=== PATIENT | female | born 1960 | race Caucasian/White ===

== ENCOUNTER 2016-12-12 15:35 | Emergency (ER) | payer OTHER ==
[~2016-12-12] VITALS: Ht 152.4 cm; Wt 48.5 kg
[~2016-12-12 15:35] MED LIST: CALCTAB5 PO; ERGO1CAP35 PO; LSN25 PO; NRN100 PO; SERT50TA PO
[2016-12-12 15:37] VITALS: TEMP 37.1; Ht 152.4 cm; Wt 48.5 kg
[2016-12-12] MEDS ORDERED: CALCTAB5 PO (16:04)
[2016-12-12] MEDS ORDERED: IBUP-1050 PO (16:04)
[2016-12-12] MEDS ORDERED: NAPR1TAB9 PO (16:04)
[2016-12-12] MEDS ORDERED: ACET-1256 PO (16:04)
[2016-12-12] MEDS ORDERED: SERT-234 PO (16:04)
[2016-12-12] MEDS ORDERED: GABA300C19 PO (16:04)
[2016-12-12] MEDS ORDERED: HYDROCODONE/ACETAMOPHEN 5/325MG TAB PO ONE (16:30)
--- NOTE | 2016-12-12 16:47 | DIAGNOSTIC IMAGING REPORT ---
RIGHT FOOT MIN 3 VIEWS ROUTINE CLINICAL HISTORY: Right foot pain. Surgery one year ago. COMPARISON: Right foot radiographs August 29, 2015. FINDINGS: The tarsometatarsal joints are intact. There is no acute fracture. There are postoperative findings within the right first metatarsophalangeal joint consistent with an arthroplasty. There is a screw within the right first metatarsal head. There is lucency surrounding the hardware within the proximal phalanx. There are also subtle erosions within the distal aspect of the right first metatarsal. These findings have developed since prior exam. There is no acute fracture. IMPRESSION: 1. No acute fracture or dislocation of the right foot. 2. Status post right first metatarsophalangeal joint arthroplasty. Interval development of mild lucency surrounding the hardware within the proximal phalanx as well as erosions within the distal aspect of the first metatarsal. These findings raise the possibility of loosening of the hardware. Electronically signed by: Nacho Angulo M.D. 12/12/2016 4:46 PM Dictated Date/Time: 12/12/2016 4:41 PM
[2016-12-12 17:12] VITALS: BP 162/89; PULSE 58; O2SAT 100
[2016-12-12] MEDS ORDERED: HYDR-5688 PO (17:31)
--- NOTE | 2016-12-14 06:50 | EMERGENCY ROOM VISIT NOTE ---
ED Visit Note First contact with patient: 15:56 Chief Complaint: Right foot pain. History of Present Illness: Ms. Raphael is a 56-year-old white female who ambulates into the ED complaining of right foot pain. Historically patient reports approximately one year ago she had surgery on her great toe for what she describes as excessive palm formation in the [place] area. She reports since her surgery she continues to have pain in the right great toe area and over the last month the pain has increased in severity. Initially she did follow-up with orthopedic surgeon but reports subsequently her orthopedic surgeon has retired and her care was not transferred to another specialist. Patient reports over the right first MTP joint she has deep achy sensation at rest that becomes sharp and shooting up her leg when she is weightbearing and ambulating. She rates her discomfort 8/10. She describes radiation pattern that extends from her scar up the anterior portion of the lower leg then deviates laterally at the level of the knee and all the way into her hip. She has mild relief when she is not weightbearing or ambulating with return to her normal deep achy sensation. She reports she has been placed on gabapentin which initially helped her discomfort but since it has escalated she has not received any relief from the medication. She denies any associated symptoms including fevers, chills, sweats, skin eruptions, skin color changes, new trauma to the area, abdominal pain, nausea, vomiting, decreased appetite, lumbar back pain, right lower extremity weakness/numbness/tingling. Review of Systems: As noted above in history of present illness. 8 body systems were reviewed and found to be negative as noted above. Past Medical History: As previously noted, hypertension, unspecified skin kidney disease, asthma, chronic back pain, status post hysterectomy Current Medications: Lisinopril, Zoloft, Carafate, Neurontin, Tylenol, Aleve, ibuprofen. Allergies to Medications: Aspirin, penicillin, tramadol, Flexeril. Social History: Patient is not employed; she feels safe in her home environment ; she mitts to tobacco and alcohol use. Physical Examination: Vital Signs: Date Time Temp Pulse Resp B/P (MAP) Pulse Ox O2 Delivery O2 Flow Rate FiO2 12/12/16 17:12 58 18 162/89 100 Room Air 12/12/16 15:37 37.1 74 20 141/73 98 Room Air GENERAL: 56-year-old female in moderate distress due to pain, nontoxic-appearing , afebrile and hemodynamically stable. NEUROLOGICAL: Awake, alert and oriented to person, place and time. Answering questions appropriately and following commands. Limbed gait. Good hand eye coordination. No focal motor or sensory deficits. SKIN: Warm, dry and pink. No soft tissue eruptions or trauma noted. Patient's surgical scar on her right foot is clean dry and intact without signs of infection. RIGHT LOWER EXTREMITY: No gross bony deformity. Moderate tenderness starting over the first MTP joint extending superiorly over the anterior foot and ankle and the anterior mid tibial area. I do not appreciate any bony deformity or crepitus. There is no erythema or edema. The area is not warm to palpation. She has difficulty flexing and extending her great toe at the MTP joint. She does have full range of motion at the ankle, knee and hip. She was able to distinguish light sensations through all dermatomes. Throughout the foot capillary refill was brisk. No dependent edema. No calf tenderness or cords. ED Course: Patient is assessed as noted above. Patient's medication list was reviewed. Patient was given one [place] 5/325 mg tablet by mouth for pain. Right Foot X-Rays: Were read by myself and the radiologist showing no acute fractures or dislocations. Radiologist notes that status post right first MTP joint arthroplasty with interval development of mild lucency surrounding the hardware within the proximal phalanx and erosions within the distal aspect of the first metatarsal raising the possibility of loosening hardware. Patient was placed in a postop shoe; she was offered crutches and reported she had a pair at home. Patient was educated about today's findings and instructed on her treatment plan ; she verbalizes understanding and agreement with this plan. Clinical Impression: Right foot pain. Loosening surgical hardware. Decision-Making: Initially my differential diagnosis I considered fracture, dislocation, gout, arthritis, hardware malfunction and other causes. Disposition: Patient discharged home in stable condition; prior to departure she was reassessed and subjectively reported she was feeling better and rated her discomfort 3/10. Plan: Comfort measures including rest, postop shoe and crutch use and a sliding pain scale of ibuprofen, acetaminophen and [place] were discussed with the patient. Patient was given appropriate precautions for narcotic use and her name was checked on the state database and no red flags were noted. Patient was encouraged to call her PCP for referral to orthopedics in her area for definitive care and treatment. Patient was encouraged return to the ED for worsening pain, redness/swelling, fevers, leg/foot weakness/numbness/tingling or any new/concerning symptoms.
== END 2016-12-12 17:37 | disposition home or self-care (01) ==
LOC: C.EDB 15:36 → C.EDD 17:37
DX: M79.674 Pain in right toe(s) (principal); T84.038A Mechanical loosening of other internal prosthetic joint, initial encounter; X58.XXXA Exposure to other specified factors, initial encounter; I10 Essential (primary) hypertension; J45.909 Unspecified asthma, uncomplicated; M54.9 Dorsalgia, unspecified; G89.29 Other chronic pain; F17.200 Nicotine dependence, unspecified, uncomplicated; Z96.698 Presence of other orthopedic joint implants